=== PATIENT | male | born 1955 | race Caucasian/White ===

== ENCOUNTER 2018-11-02 11:33 | Emergency (ER) | payer OTHER, SELFPAY ==
[2018-11-02 11:41] VITALS: BP 134/74; PULSE 65; RESP 16; TEMP 36.6; O2SAT 96; BMI 31.5
--- NOTE | 2018-11-02 11:59 | ED.EYEPROB ---
HPI - Eye Problem <KATHIA Barton-BC - Last Filed: 11/02/18 21:30> General Chief complaint: Eye Problems Stated complaint: Rt eye something in it Time Seen by Provider: 11/02/18 11:50 Source: patient Mode of arrival: ambulatory Limitations: no limitations History of Present Illness HPI Narrative: The patient is a 63-year-old male with history ofCOPD and costochondritis who presents with a chief complaint of metal in his right eye. He states that he was grinding at work, and felt something should up into his eye. He was wearing protective equipment. He states this has happened over 20 times at work. He does not know when his last tetanus was. Denies any visual deficit blurry vision halo ring of lights etc. He states he tried to flush it out with water afterwards. Related Data Previous Rx's Medication Instructions Recorded albuterol sulfate [Ventolin HFA] 2 puff INH Q4HP PRN #1 ea 04/25/17 benzonatate [Tessalon Perles] 100 mg PO Q8HP PRN #14 cap 04/25/17 doxycycline hyclate 100 mg PO BID #14 cap 04/25/17 prednisone 40 mg PO AMCC #8 tab 04/25/17 erythromycin 0.5 inch EYE-RIGHT 6XD 10 Days 11/02/18 #3.5 gram Allergies Allergy/AdvReac Type Severity Reaction Status Date / Time Penicillins [PENICILLINS] Allergy Unknown hives Verified 11/02/18 11:41 Xhzmhqz-Jmb-Gqt Reductase Allergy Unknown afib Verified 11/02/18 11:41 Inhibitor [BOIUBTP-QEW-DVD REDUCTASE INHIBITOR] Review of Systems <CARY Barton - Last Filed: 11/02/18 21:30> Review of Systems GENERAL: Denies chills, fatigue, malaise, fever, sweats. HEENT: see HPI RESPIRATORY: Denies dyspnea, cough, wheezing, hemoptysis, sputum. CARDIOVASCULAR: Denies chest pain, palpitations, orthopnea, edema, GASTROINTESTINAL: Denies nausea, vomiting, abdominal pain, diarrhea, constipation, melena. : Denies dysuria, frequency, incontinence, hematuria, urinary retention. MUSCULOSKELETAL: denies weakness, joint pain, or bony pain SKIN: Denies rash, skin lesions, or other NEUROLOGIC: Denies weakness, headache, numbness, change in speech, confusion, seizures, incoordination. PSYCHIATRIC: No concerning psychosocial issues. 12 point review of systems is negative except for those stated above Exam <CARY Barton - Last Filed: 11/02/18 21:30> Narrative Exam Narrative: GENERAL: This is a well-nourished, well-developed patient, in no acute distress HEAD: Atraumatic. Normocephalic. No temporal or scalp tenderness. EYES: Pupils equal round and reactive. Extraocular motions intact. No scleral icterus. No injection or drainage. On fluorescein exam, small foreign body noted lateral aspect of right eye. Subsequent corneal abrasions noted. ENT: Nose without bleeding, purulent drainage or septal hematoma. Throat without erythema, tonsillar hypertrophy or exudate. Uvula midline. Airway patent. NECK: Trachea midline. No JVD or lymphadenopathy. Supple, nontender, no meningeal signs. CARDIOVASCULAR: Regular rate and rhythm RESPIRATORY: No cough. No increased respiratory effort. No accessory muscle use. EXTREMITIES: No clubbing, cyanosis, or edema. No joint tenderness, effusion, or edema noted. BACK: Nontender without deformity or crepitance. No flank tenderness. NEURO: AOx3. SKIN: No rash or erythema. Initial Vital Signs Initial Vital Signs: Vital Signs Temperature 97.8 F 11/02/18 11:41 Pulse Rate 65 11/02/18 11:41 Respiratory Rate 16 11/02/18 11:41 Blood Pressure 134/74 11/02/18 11:41 Pulse Oximetry 96 11/02/18 11:41 <Miesha Dominguez DO - Last Filed: 11/04/18 07:21> Initial Vital Signs Initial Vital Signs: Vital Signs Temperature 97.8 F 11/02/18 11:41 Pulse Rate 65 11/02/18 11:41 Respiratory Rate 16 11/02/18 11:41 Blood Pressure 134/74 11/02/18 11:41 Pulse Oximetry 96 11/02/18 11:41 Procedures <CARY Barton - Last Filed: 11/02/18 21:30> Foreign Body EYE Time Out performed: Yes Location: eye (R) Topical anesthetic used: proparacaine Foreign body: metal Evidence of corneal penetration: No Technique: cotton tip swab Procedure performed under: direct visualization with magnification Post-procedure medication: ophthalmic antibiotic Patient tolerated procedure: well Course <KATHIA Barton-BC - Last Filed: 11/02/18 21:30> Orders Ordered: Discontinued Medications Diphtheria/Tetanus/Acell Pertussis (Adacel) 0.5 ml IM .ONCE ONE Stop: 11/02/18 11:59 Last Admin: 11/02/18 12:08 Dose: 0.5 ml Erythromycin (Erythromycin Ophth Oint) 1 applic EYE-RIGHT NOW ONE Stop: 11/02/18 13:13 Last Admin: 11/02/18 13:41 Dose: Not Given Proparacaine HCl (Parcaine 0.5% Ophth Breann) 1 drops EYE-RIGHT NOW ONE Stop: 11/02/18 12:00 Last Admin: 11/02/18 12:07 Dose: 1 drop Vital Signs - 8 hr 11/02/18 13:42 Respiratory Rate 18 Pulse Oximetry 100 <Miesha Dominguez DO - Last Filed: 11/04/18 07:21> Orders Ordered: Discontinued Medications Diphtheria/Tetanus/Acell Pertussis (Adacel) 0.5 ml IM .ONCE ONE Stop: 11/02/18 11:59 Last Admin: 11/02/18 12:08 Dose: 0.5 ml Erythromycin (Erythromycin Ophth Oint) 1 applic EYE-RIGHT NOW ONE Stop: 11/02/18 13:13 Last Admin: 11/02/18 13:41 Dose: Not Given Proparacaine HCl (Parcaine 0.5% Ophth Breann) 1 drops EYE-RIGHT NOW ONE Stop: 11/02/18 12:00 Last Admin: 11/02/18 12:07 Dose: 1 drop Vital Signs - 8 hr 11/02/18 13:42 Respiratory Rate 18 Pulse Oximetry 100 MDM - Eye Problem <KATHIA Barton-BC - Last Filed: 11/02/18 21:30> MDM Narrative Medical decision making narrative: The patient is a 63-year-old male who presents with chief complaint of metal in his eye. It was removed as documented in procedural note. His tetanus was updated. I encouraged the patient to follow up with an lithographic stripper, the patient states he does not have one as he does not need one. I gave him contact information for one. He was placed on erythromycin postprocedure. I did discuss having DR Dominguez evaluate his eye given his repeated chronic issues and foreign bodies complicating his exam. The patient declined as further evaluation, stating he just wanted to leave. I did discuss a can come back to the emergency department for any acute concerns or visual changes. Encouraged follow-up with an lithographic stripper as well as primary care provider. Patient has no questions or concerns upon discharge. Discharge Plan Departure Patient Disposition: Home Clinical Impression: Eye foreign body Qualifiers: Encounter type: initial encounter Laterality: right Qualified Code(s): T15.91XA - Foreign body on external eye, part unspecified, right eye, initial encounter Abrasion, corneal Qualifiers: Encounter type: initial encounter Laterality: right Qualified Code(s): S05.01XA - Injury of conjunctiva and corneal abrasion without foreign body, right eye, initial encounter Discharge Date/Time: 11/02/18 13:25 Interventions: ED Discharge Assessment Last Done: 11/02/18 13:42 Instructions: DI for Corneal Abrasion, DI for Corneal Foreign Body-Eye, DI for Foreign Body in the Eye Activity Restrictions/Additional Instructions: Please follow up with primary care provider. Please come back to emergency department for any acute concerns. Today we updated your tetanus did remove some metal from your eye. Please come back to emergency department for any acute visual concerns, any acute concerns. Please follow up with your PCP. You are welcome to follow up with Ophthalmology for any acute concerns. I suggest you follow up with them in a few days. Prescriptions: New erythromycin 5 mg/gram (0.5 %) ointment 0.5 inch EYE-RIGHT 6XD 10 Days Qty: 3.5 RF: 0 No Action doxycycline hyclate 100 MG capsule 100 mg PO BID Qty: 14 RF: 0 prednisone 20 MG tablet 40 mg PO AMCC Qty: 8 RF: 0 benzonatate [Tessalon Perles] 100 MG capsule 100 mg PO Q8HP PRNQty: 14 RF: 0 albuterol sulfate [Ventolin HFA] 90 MCG/PUFF HFA aerosol inhaler 2 puff INH Q4HP PRNQty: 1 RF: 0 Referrals: [facility] [Provider Group] <Miesha Dominguez DO - Last Filed: 11/04/18 07:21> Cosign ED Attending Cosignature Attestation: I was immediately available in the department for consultation, case was discussed and patient recommended to follow up with optho although patient is not willing but given referal. This documentation has been reviewed and I agree with assessment and plan. Supervised by Miesha Dominguez, DO
[2018-11-02] MEDS: PROPARACAINE 0.5% OPHTH SOL 1 DROPS EYE-RIGHT (12:07)
[2018-11-02] MEDS: TET,DIPH,PERTUSS(ACELL),VAC/PF 0.5 ML SYRINGE IM (12:08)
[2018-11-02 13:42] VITALS: RESP 18; O2SAT 100
== END 2018-11-02 13:25 | disposition home or self-care (01) ==
PROVIDERS: Emergency Provider Nurse Practitioner Family
DX: T15.91XA Foreign body on external eye, part unspecified, right eye, initial encounter (principal); Y99.0 Civilian activity done for income or pay; Z23 Encounter for immunization
CPT/HCPCS: 90471; 99283; 90715

== ENCOUNTER → 2021-01-13 10:50 | Outpatient (CLI) | payer OTHER, SELFPAY ==
[2021-01-13 11:30] LABS: COVID19 -Nasal RAPID Negative (Negative)
== END ==
PROVIDERS: Visit Provider Physician Assistant
DX: Z20.822 Contact with and (suspected) exposure to COVID-19 (principal)
CPT/HCPCS: 87635

== ENCOUNTER → 2021-01-14 08:09 | Outpatient (CLI) | payer OTHER, SELFPAY ==
--- NOTE | 2021-01-14 19:33 | DI.NM.S_ITS ---
DATE OF SERVICE: 01/14/2021 PROCEDURE: Exercise perfusion study. INDICATIONS: Chest pain. History of atrial fibrillation, hyperlipidemia. RADIOPHARMACEUTICAL: 25.1 millicurie technetium-99m Myoview IV was injected at stress and 12.5 millicurie technetium-99m Myoview IV was injected at rest. CARDIAC STRESS: The patient underwent exercise perfusion study under the supervision of an attending staff. He walked on Ivan protocol for 11 minutes, 01 seconds, achieved maximum heart rate of 129, which was 83 percent of target heart rate. Baseline blood pressure 140/88. Peak blood pressure 200/90. The patient achieved SILVIA of -22 percent and 12.8 METs of workload. Baseline rhythm was sinus. During stress and early recovery, patient has up to [address]-depression in inferior leads and lead V5 to V6 and about [address]- elevation in aVR, which got a recovered to baseline in three minutes into the recovery. No significant arrhythmias seen. No ischemic symptoms. The patient felt left upper leg cramp and fatigue. RAW DATA: There is a increased subdiaphragmatic activity. GATED STUDY: Resting LV ejection fraction 60 percent and stress LV ejection fraction 70 percent with a resting end-diastolic volume 128 mL. No obvious wall motion abnormalities. TID ratio 0.99, which is within normal limits. Lung/heart ratio 0.45, which is upper limit of normal. MYOCARDIAL PERFUSION SCAN: Stress supine images revealed a small size, moderately decreased perfusion of basal inferior wall extending into the basal inferoseptum. Resting supine images revealed moderate-size, moderately decreased perfusion of basal inferior wall extending into the basal inferoseptum, as well as mildly decreased perfusion of inferoapex. Stress prone images revealed significant improvement of basal inferior wall, basal inferoseptal, as well as inferoapical defect. No convincing ischemia or infarction pattern. CONCLUSION: As far as perfusion scan is concerned, I will call this study a normal myocardial perfusion study with evidence of diaphragmatic tissue attenuation artifact, which got resolved during stress prone images. However, during exercise in early recovery, the patient has ischemic electrocardiographic changes up to 2 mm, which was horizontal and downsloping, and [address]-elevation in aVR with recovery to baseline in three minutes. The patient has excellent exercise tolerance. Mildly hypertensive blood pressure response. No significant arrhythmias. No chest pain. Left ventricular function is preserved. Although perfusion scan is a low-risk perfusion scan. However, the patient has impressive ischemic changes on treadmill electrocardiogram. Sometimes balanced ischemia will not show up on perfusion scan. Occlusive coronary artery disease cannot be ruled out. Please correlate clinically. Peewee Us - TIERA/angelique/srikanth doc#: [id number]/job#: [id number] dd: 01/14/2021 17:32:00 dt: 01/14/2021 19:03:00 DICTATING MD/COPIES TO: Hilaria Mcmullen MD COPIES MNE: ALEAH;
== END ==
PROVIDERS: PCP Family Medicine; Referring Provider Family Medicine; Visit Provider Family Medicine
DX: I48.91 Unspecified atrial fibrillation (principal); R07.89 Other chest pain; E78.5 Hyperlipidemia, unspecified
CPT/HCPCS: 78452; 93017; A9502

== ENCOUNTER → 2022-02-11 08:38 | Outpatient (CLI) | payer OTHER, SELFPAY ==
--- NOTE | 2022-02-11 08:39 | DI.US.S_ITS ---
PROCEDURE: US CAROTID DOPPLER BI INDICATIONS: Symptoms and signs involving the circulatory syste TECHNIQUE: Color and pulse Doppler interrogation was performed of both carotid systems, with image documentation and velocity measurements. COMPARISON: None. FINDINGS: Stenosis calculations are based on SRU (Society of Radiologists in Ultrasound) criteria. Right side: Brachial blood pressure: 143/88 mm Hg. Common carotid artery peak systolic velocity: 91 cm/sec. Internal carotid artery peak systolic velocity: 188 cm/sec. Internal carotid artery end diastolic velocity: 58 cm/sec. External carotid artery peak systolic velocity: 127 cm/sec. ICA/CCA peak systolic ratio: 2.1. Kapadia scale imaging description: Echogenic plaques at the bifurcation Percent internal carotid artery stenosis: 50-69%. Vertebral artery: Flow direction is antegrade. Left side: Brachial blood pressure: 137/85 mm Hg. Common carotid artery peak systolic velocity: 96 cm/sec. Internal carotid artery peak systolic velocity: 155 cm/sec. Internal carotid artery end diastolic velocity: 56 cm/sec. External carotid artery peak systolic velocity: 105 cm/sec. ICA/CCA peak systolic ratio: 1.6 . Kapadia scale imaging description: Echogenic plaques at the bifurcation Percent internal carotid artery stenosis: Less than 50%. Vertebral artery: Flow direction is antegrade. IMPRESSION: 1. 50-69% right internal carotid artery stenosis and less than 50% left internal carotid artery stenosis. 2. Echogenic plaques at the carotid bifurcations bilaterally. Dictated by: Ruchi Segal M.D. on 02/11/2022 at 15:59 Approved by: Ruchi Segal M.D. on 02/11/2022 at 16:03
== END ==
PROVIDERS: PCP Family Medicine; Referring Provider Family Medicine; Visit Provider Family Medicine
DX: I65.21 Occlusion and stenosis of right carotid artery (principal); R09.89 Other specified symptoms and signs involving the circulatory and respiratory systems
CPT/HCPCS: 93880

== ENCOUNTER 2022-05-02 07:39 | Emergency (ER) | payer OTHER, SELFPAY ==
[2022-05-02 07:40] VITALS: BP 158/87; PULSE 65; RESP 18; TEMP 36.4; O2SAT 98; BMI 28.7
--- NOTE | 2022-05-02 08:00 | ED_ITS ---
HPI - Eye Problem General Chief complaint: Eye Problems Stated complaint: got something in his LT eye at work Time Seen by Provider: 05/02/22 07:46 Source: patient Mode of arrival: Family Vehicle History of Present Illness HPI Narrative: Patient complains left eye foreign body sensation since Thursday. Patient was walking into the front door of his workplace. The wind blew and something lodged into his left eye. Denies any changes vision. Does wear corrective glasses other than reading glasses. No contact lenses. No fever chills no discharge. No blurry vision. Related Data Home Medications Medication Instructions Recorded Confirmed ascorbate calcium (vitamin C) 500 500 mg PO DAILY 05/19/19 07/30/21 mg tablet ibuprofen 200 mg tablet (Advil) 600 mg PO Q8H PRN 05/19/19 07/30/21 vitamin B complex (B 1 tab PO DAILY 05/19/19 07/30/21 Complex-Vitamin B12 tablet) Allergies Allergy/AdvReac Type Severity Reaction Status Date / Time Penicillins [PENICILLINS] Allergy Unknown hives Verified 05/19/19 14:13 Apevmfe-ZLK-UjJ Reductase Allergy Unknown afib Verified 05/19/19 14:13 Inhibitor [FGRABBW-LYG-AIN REDUCTASE INHIBITOR] Review of Systems Review of Systems Narrative: GENERAL: negative chills, fatigue, malaise, fever, sweats. HEENT: negative sinus pain, ear pain, sore throat, positive eye discomfort/pain RESPIRATORY: negative dyspnea, cough CARDIOVASCULAR: negative chest pain, palpitations GASTROINTESTINAL: negative nausea, vomiting, abdominal pain : negative dysuria, frequency, hematuria MUSCULOSKELETAL: negative muscle or bony pain SKIN: negative rash, skin lesions NEUROLOGIC: negative weakness, numbness ROS Unobtainable: All systems reviewed & are unremarkable except as noted in HPI and below Patient History Social History marital status: household members: spouse occupational status: employed Smoking Status: Never smoker alcohol intake: never substance use type: does not use Smoking Status: Never smoker alcohol intake frequency: 0-2 drinks per day Substance Use Type: does not use Exam Narrative Exam Narrative: GENERAL: in no distress, not toxic not dyspneic HEAD: Normocephalic. EYES: Pupils equal round No scleral icterus. Visual acuity left eye 20 40, right eye 20 40, both eyes 20 30 proparacaine and fluorescein and slit lamp and Wood's lamp were used. Negative Alecia sign. Negative ice rink sign. There is a small punctate foreign body at 9 o'clock position at the cornea. Small rust ring around the edges. NEURO: AOx4. SKIN: Warm and dry PSYCH: Not anxious, is cooperative Initial Vital Signs Initial Vital Signs: Vital Signs Temperature 97.6 F 05/02/22 07:40 Pulse Rate 65 05/02/22 07:40 Respiratory Rate 18 05/02/22 07:40 Blood Pressure 158/87 H 05/02/22 07:40 Pulse Oximetry 98 05/02/22 07:40 Oxygen Delivery Method 05/02/22 07:40 Course Course Course Narrative: No new issues during course of stay Orders Ordered: Discontinued Medications Diphtheria/Tetanus/Acell Pertussis (Tet,Diph,Pertuss(Acell),Vac/Pf 0.5 Ml Syringe) 0.5 ml IM .ONCE ONE Stop: 05/02/22 08:01 Last Admin: 05/02/22 08:08 Dose: Not Given Documented By: REGINALD Erythromycin (Erythromycin Ophth 1 Gm Oint) 1 applic EYE-LEFT NOW ONE Stop: 05/02/22 08:01 Last Admin: 05/02/22 08:07 Dose: 1 applic Documented By: REGINALD Fluorescein Sodium (Fluorescein 1 Mg Strip) 1 mg EYE-LEFT NOW ONE Stop: 05/02/22 07:48 Last Admin: 05/02/22 08:06 Dose: 1 mg Documented By: REGINALD Proparacaine HCl (Proparacaine 0.5% Ophth Breann) 1 drops EYE-LEFT NOW ONE Stop: 05/02/22 07:49 Last Admin: 05/02/22 08:06 Dose: 1 drop Documented By: REGINALD Reevaluation(s) Reevaluation #1: Patient agrees with treatment plan. Will see Dr. velarde now Time: 08:31 Consultations Consultation #1: Spoke with Ophthalmology, Dr. Erum velarde, she will see patient in the office now in this facility Time: 08:15 Vital Signs Vital signs: Vital Signs - 8 hr 05/02/22 07:40 Temperature 97.6 F Pulse Rate 65 Respiratory Rate 18 Blood Pressure 158/87 H Pulse Oximetry 98 Oxygen Delivery Method Room Air MDM - Eye Problem Differential Diagnosis Differential diagnosis: Likely corneal abrasion, corneal ulcer and other (Corneal foreign body) MDM Narrative Medical decision making narrative: Appropriate for discharge home. Patient will follow-up with Ophthalmology for removal foreign body. I spoke with lacquer machine feeder. Dr. Erum velarde, she will see patient now in the office, office is down the [address] in this facility. L and I forms are completed. Discharge Plan Departure Patient Disposition: Home Clinical Impression: Acute foreign body of left cornea Activity Restrictions/Additional Instructions: Please go see Dr. Erum Velarde, lacquer machine feeder, now, in this building. Prescriptions: No Action ascorbate calcium (vitamin C) 500 mg tablet 500 mg PO DAILY vitamin B complex [B Complex-Vitamin B12] Tablet 1 tab PO DAILY ibuprofen [Advil] 200 mg tablet 600 mg PO Q8H PRN Referrals: Erum Velarde MD [Physician] - Justen Medina MD [Primary Care Provider] -
[2022-05-02] MEDS: FLUORESCEIN 1 MG STRIP EYE-LEFT (08:06)
[2022-05-02] MEDS: PROPARACAINE 0.5% OPHTH SOL 1 DROPS EYE-LEFT (08:06)
[2022-05-02] MEDS: ERYTHROMYCIN OPHTH 1 GM OINT 1 APPLIC EYE-LEFT (08:07)
== END 2022-05-02 08:35 | disposition home or self-care (01) ==
PROVIDERS: Emergency Provider Emergency Medicine; PCP Family Medicine
DX: T15.02XA Foreign body in cornea, left eye, initial encounter (principal); Y99.0 Civilian activity done for income or pay
CPT/HCPCS: 99282

== ENCOUNTER 2022-07-09 09:51 | Day surgery (SDC) | payer OTHER, SELFPAY ==
--- NOTE | 2022-07-09 | PATH_ITS ---
[facility] Accession Number: [id number] No. of containers..02 Tissue . 01 Material submitted: . PART A: colon - DESCENDING COLON POLYP PART B: colon - COLON POLYPS @ 60 CM . 01 Diagnosis: A. Descending Colon Polyp: Serrated lesion, cannot exclude sessile serrated adenoma. . B. Colon Polyps at 60 cm: Tubular adenoma x1. Colonic mucosa with focal mucosal hyperplasia x1. MRV 07/15/2022 1247 Local . 01 Electronically signed: . Ned Jacobson MD, PhD, Pathologist NPI- [id number] . 01 Gross description: . Part A: DESCENDING COLON POLYP: Received in formalin are 2 fragment(s) of grossman, soft tissue measuring 0.3 x 0.1 x 0.1 cm to 0.2 x 0.1 x 0.1 cm submitted entirely in 1 cassette(s) Part B: COLON POLYPS @ 60 CM: Received in formalin is 1 fragment(s) of grossman, soft tissue measuring 0.3 x 0.2 x 0.2 cm submitted entirely in 1 cassette(s) /CPE 07/10/2022 0556 Local . 01 Pathologist provided ICD-10: D12.4, D12.6 . 01 CPT . 514297, 470033 Specimen Comment: A courtesy copy of this report has been sent to [phone] Performed at: 01 [facility] [address] [place] [address], [place], [place] [id number] MD Albino Santos MD Phone: [phone]
[2022-07-09] MEDS: LACTATED RINGERS 1,000 ML 100 ML IV (10:10)
[2022-07-09 10:15] VITALS: BP 149/80; PULSE 63; RESP 16; TEMP 36.3; O2SAT 97
[2022-07-09 11:06] VITALS: BP 129/79; PULSE 55; RESP 14; TEMP 36.7; O2SAT 97
[2022-07-09 11:11] VITALS: BP 120/75; PULSE 55; RESP 12; TEMP 36.4; O2SAT 99
[2022-07-09 11:19] VITALS: BP 138/81; PULSE 55; RESP 14; TEMP 36.7; O2SAT 98
--- NOTE | 2022-07-09 12:00 | PM.HP.1 ---
History of Present Illness History of Present Illness Date Patient Seen: 07/09/22 Chief complaint: Colonoscopy Narrative: History of adenomatous colon polyps Patient History Family & Social History Social History: household members spouse Tobacco & Substance use: Smoking Status Never smoker alcohol intake never alcohol intake frequency 0-2 drinks per day Substance Use Type does not use Meds Home Medications and Allergies Home Medications Medication Instructions Recorded Confirmed Type ascorbate calcium (vitamin C) 500 500 mg PO DAILY 05/19/19 07/09/22 History mg tablet ibuprofen 200 mg tablet (Advil) 600 mg PO Q8H PRN atrial fib 05/19/19 07/30/21 History vitamin B complex (B 1 tab PO DAILY 05/19/19 07/30/21 History Complex-Vitamin B12 tablet) apixaban 5 mg tablet (Eliquis) 5 mg PO DAILY 07/09/22 07/09/22 History diltiazem HCl 90 mg tablet 240 mg PO BID 07/09/22 07/09/22 History Allergies Allergy/AdvReac Type Severity Reaction Status Date / Time Penicillins [PENICILLINS] Allergy Unknown hives Verified 07/09/22 10:19 Vzdzhqy-UFX-ZdD Reductase Allergy Unknown afib Verified 07/09/22 10:19 Inhibitor [QMNKBIR-BJG-ZVZ REDUCTASE INHIBITOR] Exam Vital Signs (past 8 hours): - 07/09/22 10:15 07/09/22 11:06 07/09/22 11:11 Temperature 97.3 F L 98.0 F 97.5 F L Pulse Rate 63 55 L 55 L Respiratory Rate 16 14 12 Blood Pressure 149/80 H 129/79 120/75 Pulse Oximetry 97 97 99 Oxygen Delivery Method Room Air Room Air 07/09/22 11:19 Temperature 98.0 F Pulse Rate 55 L Respiratory Rate 14 Blood Pressure 138/81 Pulse Oximetry 98 Oxygen Delivery Method Room Air Oxygen Delivery Method Room Air Narrative Exam Narrative: Oropharynx free of lesions Chest clear to auscultation percussion Cardiac exam reveals no S3 or murmur Assessment & Plan Assessment & Plan narrative: History of adenomatous colon polyps need for follow-up colonoscopy. Patient has been off of his Eliquis for the last 3 days. He has no GI symptoms. Risks benefits alternatives have been explained. Time Spent With Patient Critical Care time: I spent a total of [] minutes of critical care time on this patient's care today; this time is exclusive of procedural time.
--- NOTE | 2022-07-09 12:01 | SUR.PHASEII ---
Dr. Esquivel having computer issues. Verbal order received to discharge patient home and to resume eliquis in 2 days.
--- NOTE | 2022-07-09 12:02 | PM.OP.COLON ---
Operative Date/Time/Diagnoses Date of procedure: 07/09/22 Pre-op diagnosis: See indication and findings Procedure & Clinicians Study performed: Colonoscopy Indications: History of adenomatous colon polyps Surgeon: Nirali Esquivel Procedure Notes Procedure in detail: After informed consent was obtained the patient was placed in left lateral decubitus position. The video colonoscope was introduced the rectum slowly advanced cecum. On slow withdrawal mucosa was carefully examined. The scope was removed. The patient tolerated procedure well. Blood loss none Complications none Sedation propofol Findings 1. One 4 mm polyp in the ascending colon cold biopsy removed 2. Two polyps between 50 and 70 cm none larger than 4 mm both cold biopsy removed completely using Jumbo biopsy forceps Will be in touch with Zaria Pillo regarding his findings and pathology. I expect will need follow-up colonoscopy in 5 years
== END 2022-07-09 12:01 | disposition home or self-care (01) ==
PROVIDERS: PCP Family Medicine; Referring Provider Internal Medicine Gastroenterology; Visit Provider Internal Medicine Gastroenterology
PROC: 0DJD8ZZ Inspection of Lower Intestinal Tract, Via Natural or Artificial Opening Endoscopic (ICD-10-PCS; CPT 45378; principal; 2022-07-09 11:00)
DX: Z12.11 Encounter for screening for malignant neoplasm of colon (principal); Z86.010 Personal history of colon polyps; D12.4 Benign neoplasm of descending colon; D12.6 Benign neoplasm of colon, unspecified
CPT/HCPCS: 45380; J2250; J2704; J3010

== ENCOUNTER → 2023-02-24 08:20 | Outpatient (CLI) | payer OTHER, SELFPAY ==
--- NOTE | 2023-02-24 | DI.US.S_ITS ---
PROCEDURE: US ABD AORTA ANEURYSM SCREEN INDICATIONS: Encounter for general adult medical examination without abno TECHNIQUE: Real time scanning was performed of the aorta and iliac arteries, with image documentation. COMPARISON: None. FINDINGS: Aorta: Proximal aortic diameter measures 2.9 cm. Mid-aorta measures 2.1 cm. Distal aortic diameter is 1.7 cm. Iliac arteries: Right common iliac artery measures 1 cm. Left common iliac artery measures 1 cm. IMPRESSION: No abdominal aortic aneurysm. Ectatic proximal aorta, consider 5 year follow-up. Dictated by: Donald Sexton M.D. on 02/24/2023 at 10:44 Approved by: Donald Sexton M.D. on 02/24/2023 at 10:45
== END ==
PROVIDERS: PCP Family Medicine; Referring Provider Family Medicine; Visit Provider Family Medicine
DX: Z13.6 Encounter for screening for cardiovascular disorders (principal); Z00.00 Encounter for general adult medical examination without abnormal findings
CPT/HCPCS: 76706

== ENCOUNTER → 2025-02-09 15:56 | Outpatient (ROUT) | payer OTHER, SELFPAY ==
[2025-02-09 16:42] LABS: Influenza A - CEPHEID Flu A NEGATIVE (NEGATIVE); Influenza B - CEPHEID Flu B NEGATIVE (NEGATIVE)
[2025-02-09 17:21] LABS: COVID-19 CEPHEID 4-PLEX PCR Negative (Negative)
== END ==
PROVIDERS: Family Medicine; PCP Family Medicine; Visit Provider Family Medicine
DX: R05.1 Acute cough (principal)
CPT/HCPCS: 87637